=== PATIENT | male | born 1985 | race Caucasian/White ===

== ENCOUNTER 2019-08-23 17:31 | Emergency (ER) | payer OTHER, SELFPAY ==
[2019-08-23 17:39] VITALS: BP 130/80; PULSE 80; RESP 18; TEMP 38.4; O2SAT 98
--- NOTE | 2019-08-23 18:01 | ED.URI ---
HPI - URI/Sore Throat General Chief Complaint: Upper Respiratory Infection Stated Complaint: SORE THROAT/RUNNY NOSE/BODY ACHES Time Seen by Provider: 08/23/19 17:48 Source: patient and RN notes reviewed Mode of arrival: ambulatory Limitations: no limitations History of Present Illness HPI Narrative: Patient presents today with a 2-day history of sore throat, nonproductive cough, body aches, congestion and chills, and possible subjective fever. He has been taking Tylenol with relief. Denies history of asthma or COPD. He is a non-smoker. He did not receive a flu vaccine this season. MD elicited complaint: cough and sore throat Related Data Home Medications Medication Instructions Recorded Confirmed No Home Medications 08/23/19 08/23/19 Allergies Allergy/AdvReac Type Severity Reaction Status Date / Time No Known Allergies Allergy Verified 08/23/19 17:45 Review of Systems Review of Systems: Narrative: CONSTITUTIONAL: + Body aches, chills, subjective fever EYES: Denies visual changes, redness, or discharge. ENT: Denies rhinorrhea, or otalgia.+ Congestion, sore throat CARDIOVASCULAR: Denies chest pain, palpitations, or edema. RESPIRATORY: Denies dyspnea.+ Cough GASTROINTESTINAL: Denies abdominal pain, nausea, vomiting, or diarrhea. GENITOURINARY: Denies dysuria or hematuria. SKIN: Denies rash, itching, or wounds. MUSCULOSKELETAL: Denies back pain, joint pain, or myalgia. NEUROLOGIC: Denies headache, numbness, tingling, or weakness. PSYCH: Denies depression or anxiety. PMFSH Comments At time of signature, I have reviewed and agree with nursing past medical, surgical, social and family history unless otherwise noted. Please see nursing chart for further information. There is no relevant family history pertinent to the presenting complaint Exam Narrative: Exam Narrative: GENERAL: Mildly ill-appearing, well-nourished, and in no acute distress. HEAD: Normocephalic, atraumatic. EYES: EOMI. No redness or drainage. Conjunctivae normal. ENT: Mucous membranes pink and moist. Nares clear. No rhinorrhea. TMs normal bilaterally. Throat normal. Uvula midline. NECK: Normal AROM. Supple. No lymphadenopathy. CHEST: No respiratory distress. Clear to auscultation. HEART: Regular rate and rhythm. No murmur appreciated. Normal peripheral pulses. EXTREMITIES: Normal range of motion. No edema. SKIN: Warm, dry, no rash. NEURO: No focal deficits. Alert and oriented x3. Gait steady. PSYCH: Normal affect. No signs of depression or anxiety. Course Course Emergency Course: Patient has declined prescription for Tamiflu. Vital Signs Vital signs: Vital Signs Temperature 101.2 F H 08/23/19 17:39 Pulse Rate 80 08/23/19 17:39 Respiratory Rate 18 08/23/19 17:39 Blood Pressure 130/80 08/23/19 17:39 Pulse Oximetry 98 08/23/19 17:39 Temperature 101.2 F H 08/23/19 17:39 Pulse Rate 80 08/23/19 17:39 Respiratory Rate 18 08/23/19 17:39 Blood Pressure 130/80 08/23/19 17:39 Pulse Oximetry 98 08/23/19 17:39 Reviewed. Pt has been instructed to follow up with his PCP regarding his elevated blood pressure today. MDM - URI/Sore Throat Differential Diagnosis Differential diagnosis: Likely upper respiratory infection, otitis media, viral infection, influenza, pharyngitis and other (Strep throat) Lab Data Attestation: I reviewed the patient's lab results. Labs: Influenza A Screen Negative Reference Range: Negative Influenza B Screen Positive Reference Range: Negative Strep Screen Presumptive Negative *(Reference Range: Negative)* Critical Care Time Critical Care Time Critical Care Time: No Discharge Plan Discharge Clinical Impression: Influenza B Patient Disposition: Home, Self-Care Condition: Stable Instructions: Influenza (DC) Additional Instructions: Your influenza swab is positive for influenza B today. You will be
== END 2019-08-23 18:14 | disposition home or self-care (01) ==
PROVIDERS: Emergency Provider Nurse Practitioner
DX: J10.1 Influenza due to other identified influenza virus with other respiratory manifestations (principal)
CPT/HCPCS: 87081; 87804; 87880; 99213; G0463

== ENCOUNTER 2020-09-07 14:26 | Emergency (ER) | payer OTHER, SELFPAY ==
[2020-09-07 14:31] VITALS: BP 155/83; PULSE 74; RESP 20; TEMP 37.1; O2SAT 100
--- NOTE | 2020-09-07 14:38 | ED.UPPEXIN ---
HPI - Extremity Injury (Upper) General Chief Complaint: Extremity Injury, Upper Stated Complaint: thumb injury Time Seen by Provider: 09/07/20 14:38 Source: patient and RN notes reviewed History of Present Illness HPI narrative: Patient is a 35-year-old male who presents the urgent care with complaints of left thumb pain. Patient states that he was sledding yesterday and bent the left thumb backwards on accident. Patient denies of any use of [id number] medication for his pain. Patient is right-hand dominant. Denies of any other injuries. No other acute complaints. No acute distress noted. Patient aware of the plan of care. Some parts of this dictation were generated by voice recognition software and may contain typographical and/or grammatical inaccuracies. Related Data Home Medications Medication Instructions Recorded Confirmed No Home Medications 08/23/19 09/07/20 Allergies Allergy/AdvReac Type Severity Reaction Status Date / Time No Known Allergies Allergy Verified 09/07/20 14:31 Review of Systems Review of Systems: Narrative: CONSTITUTIONAL: Denies fever, chills, or sweats. EYES: Denies visual changes, redness, or discharge. ENT: Denies rhinorrhea, congestion, sore throat, or otalgia. CARDIOVASCULAR: Denies chest pain, palpitations, or edema. RESPIRATORY: Denies cough or dyspnea. GASTROINTESTINAL: Denies abdominal pain, nausea, vomiting, or diarrhea. GENITOURINARY: Denies dysuria or hematuria. SKIN: Denies rash or itching. MUSCULOSKELETAL: Reports of left thumb pain NEUROLOGIC: Denies headache, numbness, or weakness. All other systems reviewed are negative, except as documented in HPI. PMFSH Comments At the time of my signature, I reviewed and agree with the nursing past medical, surgical, social, and family history. There is no relevant family history pertinent to the patient complaint. Exam Narrative: Exam Narrative: GENERAL: This is a well-nourished, well-developed patient, in no apparent distress. HEAD: normocephalic, atraumatic. EYES: PERRL. Sclera clear/white. Vision is grossly intact. EARS: External ears normal NOSE: External nose normal with no obvious nasal discharge, nares without redness, no rhinorrhea. THROAT: Mucous membranes moist NECK: Neck supple SKIN: warm, intact with no suspicious lesions or rash, good texture and turgor. NEURO: awake, alert, and oriented to person, place and time. There were no obvious focal neurologic abnormalities. EXTREMITIES: Very minimal edema noted to the MCP of the left thumb without any obvious fracture or deformity. No notable ecchymosis. Positive strong left radial pulse with capillary refill less than 2 seconds to left upper extremity. Range of motion to left thumb within normal limits without any appearance of pain. No tenderness to the left thumb. Course Vital Signs Vital signs: Vital Signs Temperature 98.7 F 09/07/20 14:31 Pulse Rate 74 09/07/20 14:31 Respiratory Rate 20 09/07/20 14:31 Blood Pressure 155/83 H 09/07/20 14:31 Pulse Oximetry 100 09/07/20 14:31 Temperature 98.7 F 09/07/20 14:31 Pulse Rate 74 09/07/20 14:31 Respiratory Rate 20 09/07/20 14:31 Blood Pressure 155/83 H 09/07/20 14:31 Pulse Oximetry 100 09/07/20 14:31 Reviewed-patient is informed that they may have pre-hypertension or hypertension based on a blood pressure reading in the department. I recommend the patient call the primary care provider listed on their discharge instructions or a physician of their choice this week to arrange follow-up for further evaluation of possible pre-hypertension or hypertension. MDM - Extremity Injury (Upper) MDM Narrative Medical decision making narrative: Spoke to the patient regarding x-ray. Patient defers x-ray at this time and states that if the pain is persistent or he develops any increase in swelling?he will follow-up for an outpatient x-ray. Advised the patient to use Tylenol/ibuprofen as needed for p
== END 2020-09-07 14:44 | disposition home or self-care (01) ==
PROVIDERS: Emergency Provider Nurse Practitioner Family
DX: S63.602A Unspecified sprain of left thumb, initial encounter (principal); X50.9XXA Other and unspecified overexertion or strenuous movements or postures, initial encounter; Y93.23 Activity, snow (alpine) (downhill) skiing, snowboarding, sledding, tobogganing and snow tubing
CPT/HCPCS: 99213; G0463

== ENCOUNTER 2020-09-12 08:02 | Emergency (ER) | payer OTHER, SELFPAY ==
--- NOTE | ~2020-09-12 | XR_ITS ---
XR hand LT min 3V 09/12/2020 08:15 INDICATION: Left hand pain PROCEDURE: 3 views left hand COMPARISON: No prior studies for comparison. FINDINGS: Fracture, dislocation or subluxation is not identified. The soft tissues appear within norm al limits. No foreign bodies are identified. IMPRESSION: 1: NO ACUTE BONE OR JOINT ABNORMALITY IDENTIFIED. Reviewed, dictated and finalized at location A. TOR TECHNICIAN
[2020-09-12 08:10] VITALS: BP 132/68; PULSE 69; RESP 16; TEMP 37.5; O2SAT 100
--- NOTE | 2020-09-12 08:11 | ED.UPPEXIN ---
HPI - Extremity Injury (Upper) General Chief Complaint: Extremity Injury, Upper Stated Complaint: L THUMB PAIN Time Seen by Provider: 09/12/20 08:11 Source: patient and RN notes reviewed Mode of arrival: ambulatory Limitations: no limitations History of Present Illness HPI narrative: 35-year-old male re-presents with concern for left thumb injury, pain, swelling. Reports 6 days ago he was sledding and injured the left thumb. Was seen in this clinic on September 07. Patient reports pain persists, swelling persists. Reports pain with range of motion. Denies decreased sensation, strength, bruising. complaint: injury to: left and finger Related Data Home Medications Medication Instructions Recorded Confirmed No Home Medications 08/23/19 09/07/20 Allergies Allergy/AdvReac Type Severity Reaction Status Date / Time No Known Allergies Allergy Verified 09/07/20 14:31 Review of Systems Review of Systems: Narrative: CONSTITUTIONAL: Denies malaise, chills, sweats, or fever. SKIN: Denies laceration, abrasions MUSCULOSKELETAL: Reports left thumb pain NEUROLOGIC: Denies numbness, weakness All systems reviewed & are unremarkable except as noted in HPI and below PMFSH Comments At time of signature, agree with nursing past medical, surgical, social and family history. There is no relevant family history pertinent to the presenting complaint Exam Narrative: Exam Narrative: GENERAL: Well-appearing, well-nourished, and in no acute distress. HEAD: Normocephalic EYES: PERRLA, conjunctivae clear NECK: Supple. CHEST: Speaks in full sentences. No respiratory distress. HEART: Regular rate and rhythm. Normal and equal peripheral pulses. EXTREMITIES: Left first digit has normal sensation. 4/5 strength with digit flexion, extension. Range of motion normal. No clubbing, cyanosis. Moderate edema noted to the MCP joint of the first digit with mild tenderness in the ulnar side of the digit. Mild laxity at the MCP joint. Skin intact. Normal digital cascade with flexion of fingers, median, ulnar and radial nerve intact. Normal sensation of each side of finger. Can perform 'okay' sign, 'cross over finger test of index and middle fingers' and 'thumbs up' sign. No scissoring. Normal thumb opposition. Good capillary refill and radial pulse. Distal capillary refill less than 3 seconds. SKIN: Warn, dry, intact, pink. No rash NEURO: Alert and oriented x3. PSYCH: Normal mood and affect Course Course Emergency Course: Patient is aware of diagnosis, understands and agrees to treatment plan. Anticipatory guidance given. Patient agrees to follow-up as directed and is aware of reasons to seek care at the emergency department. Portions of this record may have been created with voice recognition software Vital Signs Vital signs: Vital Signs Temperature 99.5 F 09/12/20 08:10 Pulse Rate 69 09/12/20 08:10 Respiratory Rate 16 09/12/20 08:10 Blood Pressure 132/68 09/12/20 08:10 Pulse Oximetry 100 09/12/20 08:10 Temperature 99.5 F 09/12/20 08:10 Pulse Rate 69 09/12/20 08:10 Respiratory Rate 16 09/12/20 08:10 Blood Pressure 132/68 09/12/20 08:10 Pulse Oximetry 100 09/12/20 08:10 Reviewed. MDM - Extremity Injury (Upper) MDM Narrative Medical decision making narrative: Patients injury and pain is consistent with musculoskeletal etiology. No signs of neurological or vascular compromise on exam. Compartments and tissues are soft without signs of compartment syndrome. Pain is felt appropriate for further evaluation on an outpatient basis. Imaging Data Radiologist's impression: XR hand LT min 3V 09/12/2020 08:15 INDICATION: Left hand pain PROCEDURE: 3 views left hand COMPARISON: No prior studies for comparison. FINDINGS: Fracture, dislocation or subluxation is not identified. The soft tissues appear within normal limits. No foreign bodies are identified. IMPRESSION: 1: NO ACUTE BONE OR JOINT ABNORMALITY NGUYỄN
== END 2020-09-12 08:47 | disposition home or self-care (01) ==
PROVIDERS: Emergency Provider Nurse Practitioner
DX: S69.92XD Unspecified injury of left wrist, hand and finger(s), subsequent encounter (principal); X58.XXXD Exposure to other specified factors, subsequent encounter; Y93.23 Activity, snow (alpine) (downhill) skiing, snowboarding, sledding, tobogganing and snow tubing
CPT/HCPCS: 73130; 99213; G0463

== ENCOUNTER 2022-10-12 19:18 | Emergency (ER) | payer OTHER, SELFPAY ==
[2022-10-12 19:22] VITALS: BP 130/85; PULSE 79; RESP 16; TEMP 36.4; O2SAT 100
--- NOTE | 2022-10-12 19:36 | ED.URI ---
HPI - URI/Sore Throat General Chief Complaint: Upper Respiratory Infection Stated Complaint: cough,headache,sore throat,congestion Time Seen by Provider: 10/12/22 19:36 Source: patient and RN notes reviewed Mode of arrival: ambulatory Limitations: no limitations History of Present Illness HPI Narrative: 37 y/o male presented for c/o sore throat, nasal congestion and drainage, headache and cough for about 3 days. Symptoms have varied over the past few days. Not taking anything for symptoms. Son was sick last week with strep. MD elicited complaint: cough Related Data Home Medications Medication Instructions Recorded Confirmed No Home Medications 08/23/19 09/07/20 Allergies Allergy/AdvReac Type Severity Reaction Status Date / Time No Known Allergies Allergy Verified 09/07/20 14:31 Review of Systems Review of Systems: CONSTITUTIONAL: Denies malaise, chills, sweats, fever EYES: Denies visual changes, redness, or discharge ENT: Reports rhinorrhea, congestion, sinus pain, sore throat CARDIOVASCULAR: Denies chest pain, palpitations, edema RESPIRATORY: Reports cough, post nasal drainage. Denies dyspnea GASTROINTESTINAL: Denies abdominal pain, nausea, vomiting, diarrhea SKIN: Denies rash or itching MUSCULOSKELETAL: Denies myalgia [facility] Past Medical History Medical History (Updated 10/12/22 @ 19:42 by Francheska Christensen, CÉSAR) No pertinent past medical history Exam Narrative: GENERAL: well-appearing EYES: PERRLA, conjunctivae clear ENT: Mucous membranes moist. TMs pearly al with dull light reflex bilaterally; no tragal tenderness. Oropharynx not erythematous no lesions or exudate, no drooling, no hoarseness, no trismus, uvula midline. CHEST: Clear to auscultation, breath sounds equal. No wheezing, rhonchi, rales, or stridor. No respiratory distress, speaks in full sentences. HEART: Regular rate and rhythm. No murmur heard. SKIN: Warm, dry, no rash. NEURO: Alert and oriented x3. PSYCH: Normal mood and affect Course Course Emergency Course: Patient is aware of diagnosis, understands and agrees to treatment plan. Anticipatory guidance given. Patient agrees to follow-up as directed and is aware of reasons to seek care at the emergency department. Portions of this record may have been created with voice recognition software Level of Care: Express Care Visit Vital Signs Vital signs: Vital Signs Temperature 97.6 F 10/12/22 19:22 Pulse Rate 79 10/12/22 19:22 Respiratory Rate 16 10/12/22 19:22 Blood Pressure 130/85 10/12/22 19:22 Pulse Oximetry 100 10/12/22 19:22 Temperature 97.6 F 10/12/22 19:22 Pulse Rate 79 10/12/22 19:22 Respiratory Rate 16 10/12/22 19:22 Blood Pressure 130/85 10/12/22 19:22 Pulse Oximetry 100 10/12/22 19:22 reviewed MDM - URI/Sore Throat MDM Narrative Medical decision making narrative: Neg strep result reviewed with pt. Advised supportive measures and signs/symptoms to go to the ER. Pt is appropriate for outpt treatment and f/u. Differential Diagnosis Differential diagnosis: Likely upper respiratory infection, sinusitis, viral infection and pharyngitis Lab Data Labs: Strep Screen Presumptive Negative *(Reference Range: Negative)* Discharge Plan Discharge Clinical Impression: Upper respiratory infection Patient Disposition: Home, Self-Care Condition: Stable Instructions: Upper Respiratory Infection (ED) Additional Instructions: Rapid strep swab was negative today You will be notified in a few days if the culture comes back positive for strep, and appropriate antibiotics will be called in at that time. if symptoms are due to a viral illness, it is not treated with antibiotics. Viral symptoms can be present for up to 10-14 days. Recommend Flonase spray and Zyrtec for sinus congestion Cough syrup may cause drowsiness; avoid driving or take it at night time. Louann
== END 2022-10-12 19:44 | disposition home or self-care (01) ==
PROVIDERS: Emergency Provider Nurse Practitioner Family
DX: J06.9 Acute upper respiratory infection, unspecified (principal)
CPT/HCPCS: 87081; 87880; 99213; G0463

== ENCOUNTER 2024-02-29 09:52 | Emergency (ER) | payer OTHER, SELFPAY ==
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
[2024-02-29 10:04] VITALS: BP 123/73; PULSE 67; RESP 16; TEMP 36.6; O2SAT 100
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
== END 2024-02-29 11:10 | disposition home or self-care (01) ==
PROVIDERS: Emergency Provider Nurse Practitioner
DX: S60.051A Contusion of right little finger without damage to nail, initial encounter (principal); V19.9XXA Pedal cyclist (driver) (passenger) injured in unspecified traffic accident, initial encounter
CPT/HCPCS: 73140; 99213; G0463

== ENCOUNTER 2024-04-02 18:23 | Emergency (ER) | payer OTHER, SELFPAY ==
--- NOTE | ~2024-04-02 | XR_ITS ---
XR chest 2V DATE: 04/02/2024 19:23 INDICATION: Cough, fever TECHNIQUE: 2 views COMPARISON: None FINDINGS: There is mild patchy infiltrate in the base of the right lung, right lower lobe. The lungs otherwise appear clear. No pleural effusion or pulmonary vascular congestion or pneumothorax. Normal heart size. No hilar or mediastinal enlargement. Included skeletal structures are unremarkable. IMPRESSION: Mild patchy right lower lobe infiltrate, likely due to pneumonia given the history of cou gh and fever Reviewed, dictated and finalized at location A. IMPRESSION: Mild patchy right lower lobe infiltrate, likely due to pneumonia gi viviana the history of cough and fever
--- NOTE | 2024-04-02 18:25 | ED.URI ---
HPI - URI/Sore Throat General Chief Complaint: Upper Respiratory Infection Stated Complaint: BODY ACHES/COUGH/FEVER Time Seen by Provider: 04/02/24 18:52 Source: patient, RN notes reviewed and old records reviewed Mode of arrival: ambulatory Limitations: no limitations History of Present Illness HPI Narrative: 38-year-old male presents to the [facility] with complaints of body aches, cough pain fevers. Symptoms started several days ago states that he thought it was getting better yesterday but woke up with fever in feeling worse today. Related Data Allergies Allergy/AdvReac Type Severity Reaction Status Date / Time No Known Allergies Allergy Verified 04/02/24 18:43 Review of Systems Review of Systems: All systems reviewed & are unremarkable except as noted in HPI and below Constitutional: Constitutional: Reports as per HPI, Reports body ache(s) and Reports chills Eyes: Eyes: Reports no additional eye complaints ENT: Reports as per HPI Cardiovascular: Cardiovascular: Reports no additional cardiovascular complaints, Denies chest pain and Denies dyspnea Respiratory: Respiratory: Reports as per HPI, Denies chest congestion, Reports cough and Denies dyspnea Gastrointestinal: Gastrointestinal: Reports no additional gastrointestinal complaints, Denies abdominal pain, Denies nausea and Denies vomiting Musculoskeletal: Musculoskeletal: Reports no additional musculoskeletal complaints Integumentary/Breasts: Skin/Breast: Reports system reviewed and no additional complaints, except as docu Neurologic: Reports system reviewed and no additional complaints, except as documented Psychiatric: Psychiatric: Reports no additional psychiatric complaints Allergic/Immunologic: Allergic/Immunologic: Reports no additional allergic/immunologic complaints [facility] Past Medical History Medical History No pertinent past medical history Comments At the time of my signature, I reviewed and agree with the nursing past medical, surgical, social, and family history. There is no relevant family history pertinent to the patient complaint. Exam Const: General: cooperative, healthy appearing, comfortable, no acute distress, well developed, alert and well nourished Nutritional Appearance: well nourished Orientation/consciousness: patient oriented x3 Limitations: no limitations HENMT: Head: normal to inspection Ears: hearing grossly normal bilaterally, external ears normal, TM's normal bilaterally, EAC's normal, mastoids normal and no periauricular adenopathy Face/Nose/Sinus: Normal external nose present, Normal nares present, Normal nasal mucous membranes and turbinates present, normal facial exam and face symmetric Face and sinus: normal facial exam and face symmetric Mouth: Yes Normal oral and palatal mucosa present, Yes lip normal and Yes tongue normal Throat: posterior oropharynx normal and uvula midline Eyes: General: appearance normal, both eyes and all related structures Alignment and Position: alignment normal Periorbital: periorbital findings normal Pupils: Equal, round and reactive pupils present EOM: EOMs intact bilaterally Neck: Neck: normal visual inspection, full ROM, no lymphadenopathy and no meningeal signs Chest: Chest palpation & inspection: normal inspection of the chest Resp: Effort & Inspection: normal respiratory effort and able to speak in complete sentences Auscultation: no crackles, no rales, rhonchi right lower and no wheezes Cardio: Rate: regular rate Rhythm: regular rhythm Skin: General skin exam: normal color and no rashes or lesions noted Lesions: no lesions Rashes: no rashes Trauma: no lacerations or abrasions Wounds: no wounds Neuro: General: patient oriented x3, gait normal, tone normal, moves all extremities and no meningeal signs Cranial nerves: Yes Equal, round and reactive pupils present Cognition (Neuro): normal cognition Speech: normal speech [place]
[2024-04-02 18:49] VITALS: BP 118/81; PULSE 100; RESP 16; TEMP 37.9; O2SAT 100
[2024-04-02 19:16] LABS: EDINFLUASCREEN Negative (Negative); EDINFLUBSCREEN Negative (Negative)
== END 2024-04-02 19:40 | disposition home or self-care (01) ==
PROVIDERS: Emergency Provider Nurse Practitioner
DX: J18.1 Lobar pneumonia, unspecified organism (principal); Z20.822 Contact with and (suspected) exposure to COVID-19
CPT/HCPCS: 71046; 87426; 87804; 99213; G0463

== ENCOUNTER 2025-02-11 09:58 | Emergency (ER) | payer OTHER, SELFPAY ==
[2025-02-11 10:07] VITALS: BP 127/64; PULSE 72; RESP 16; TEMP 36.6; O2SAT 100
--- NOTE | 2025-02-11 10:38 | ED_ITS ---
HPI - Ear Problem General Chief complaint: Ear Stated complaint: Ear Pain Time Seen by Provider: 02/11/25 10:30 Source: patient and RN notes reviewed Mode of arrival: ambulatory Limitations: no limitations History of Present Illness HPI Narrative: Patient presents today complaining of mild right ear pain since yesterday. Denies decreased hearing or drainage. He has been swimming frequently. Currently rates his pain 3/10 and has tried no [id number]-[id number] interventions prior to arrival. He also reports a small bump to his scrotum x6 weeks. States has not changed in the past 6 weeks. Denies tenderness or drainage. States his child has some molluscum contagiosum and he wanted to make sure it was not that prior to going on vacation. Related Data Allergies Allergy/AdvReac Type Severity Reaction Status Date / Time No Known Allergies Allergy Verified 04/02/24 18:43 [facility] Past Medical History Medical History No pertinent past medical history Comments At time of signature, I have reviewed and agree with nursing past medical, surgical, social and family history unless otherwise noted. Please see nursing chart for further information. There is no relevant family history pertinent to the presenting complaint Exam Narrative: GENERAL: Well-appearing, well-nourished, and in no acute distress. HEAD: Normocephalic, atraumatic. EYES: EOMI. No redness or drainage. Conjunctivae normal. ENT: Mucous membranes pink and moist. Nares clear. Left ear normal. Right ear: TM normal. Canal is mildly erythematous without edema or drainage. Mild tragal tenderness. NECK: Normal AROM. CHEST: No respiratory distress. 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 Patient has a small skin colored pustule to the mid scrotum measuring approximately 2 mm without erythema or drainage. Nontender to palpation. EXTREMITIES: Normal range of motion. No edema. SKIN: Warm, dry, no rash. Capillary refill normal. Normal skin turgor. NEURO: No focal deficits. Alert and oriented x3. Gait steady. PSYCH: Normal affect. No signs of depression or anxiety. Course Course Level of Care: Express Care Visit Vital Signs Vital signs: Vital Signs Temperature 97.8 F 02/11/25 10:07 Pulse Rate 72 02/11/25 10:07 Respiratory Rate 16 02/11/25 10:07 Blood Pressure 127/64 02/11/25 10:07 Pulse Oximetry 100 02/11/25 10:07 Temperature 97.8 F 02/11/25 10:07 Pulse Rate 72 02/11/25 10:07 Respiratory Rate 16 02/11/25 10:07 Blood Pressure 127/64 02/11/25 10:07 Pulse Oximetry 100 02/11/25 10:07 Medical Decision Making MDM Narrative Medical decision making narrative: 39-year-old male patient presents with right ear pain since yesterday after frequently swimming. Also would like an area of his scrotum evaluated. Exam shows some mild erythema in the canal consistent with early otitis externa for which he will be treated with some Ciprodex. Evaluation of his scrotum shows a tiny pustule. Recommend some warm compresses as the area does not seem acutely infected with PCP follow-up if symptoms persist or worsen. Vital signs stable. Anticipatory guidance given. Patient agrees with plan. Differential Diagnosis Differential Diagnosis: Otitis media, otitis externa, ruptured TM, serous otitis, cerumen impaction. Molluscum contagiosum, abscess, cellulitis, ingrown hair Vital Signs Vital Signs: Vital Signs Temperature 97.8 F 02/11/25 10:07 Pulse Rate 72 02/11/25 10:07 Respiratory Rate 16 02/11/25 10:07 Blood Pressure 127/64 02/11/25 10:07 Pulse Oximetry 100 02/11/25 10:07 Temperature 97.8 F 02/11/25 10:07 Pulse Rate 72 02/11/25 10:07 Respiratory Rate 16 02/11/25 10:07 Blood Pressure 127/64 02/11/25 10:07 Pulse Oximetry 100 02/11/25 10:07 Critical Care Time Critical Care Time Critical Care Time: No Discharge Plan Discharge Clinical Impression: Otitis externa of right ear, Pustule Patient Disposition: Home Condition: Stable Instructions: Swimmer's Ear (ED) Additional Instructions: Please use the ear drops as directed. Keep your ear as dry as possible, and do not put anything in the ear canal that will irritated such as ear buds, ear plugs, or Q-tips. Do not submerge the head in water such as pools, hot tubs for the next approximately 5 days. Take Tylenol or ibuprofen if needed for pain. Apply warm compress to the pustule on your scrotum to help facilitate any drainage. If the area worsens to include pain, swelling, redness, please follow-up with your PCP. Your blood pressure was elevated above 120/80 today at Urgent Care. This puts you above the threshold for follow up. Please schedule a followup visit with your personal physician as soon as possible, for further evaluation and treatment. Even blood pressure exceeding 120/80 may indicate pre-hypertension. Patient Language: Citizen Of [place] Prescriptions: New ciprofloxacin-dexamethasone 0.3-0.1 % drops,suspension 4 drp RIGHT EAR Q12H 5 Days Qty: 7.5 0RF Follow-up/Referrals: PHYSICIAN,PROFESSOR OF ARCHITECTURE [Primary Care Provider] - Time of Disposition: 10:45
== END 2025-02-11 10:48 | disposition home or self-care (01) ==
PROVIDERS: Emergency Provider Nurse Practitioner
DX: H60.91 Unspecified otitis externa, right ear (principal); L08.9 Local infection of the skin and subcutaneous tissue, unspecified
CPT/HCPCS: 99213; G0463

== ENCOUNTER 2025-04-20 16:10 | Emergency (ER) | payer OTHER, SELFPAY ==
--- NOTE | 2025-04-20 16:23 | ED_ITS ---
HPI - Wound/Laceration General Chief Complaint: Skin/Abscess/Foreign Body Stated Complaint: PUNCTURE WOUND L WRIST Time Seen by Provider: 04/20/25 16:23 Source: patient Mode of arrival: ambulatory Limitations: no limitations History of Present Illness HPI narrative: 40-year-old male presented for complaint of bruising to the forearm for about 1 week. Bruising started after he punctured the forearm with a picture wire 1 week ago. He denies any pain or swelling, numbness, tingling or weakness of the hand. Says he talked to the school nurse today who advised evaluation due to the bruising. Related Data Allergies Allergy/AdvReac Type Severity Reaction Status Date / Time No Known Allergies Allergy Verified 04/20/25 16:37 Review of Systems 2 Review of Systems: CONSTITUTIONAL: Denies body aches, fever, chills, or sweats. CARDIOVASCULAR: Denies chest pain, palpitations, or edema. RESPIRATORY: Denies cough or dyspnea. GASTROINTESTINAL: Denies abdominal pain, nausea, vomiting, or diarrhea. SKIN: reports bruising MUSCULOSKELETAL: Denies back pain, joint pain, or myalgia. NEUROLOGIC: Denies numbness, tingling, or weakness. [facility] Past Medical History Medical History No pertinent past medical history Comments At time of signature, I have reviewed and agree with nursing past medical, surgical, social and family history unless otherwise noted. Please see nursing chart for further information. There is no relevant family history pertinent to the presenting complaint Exam 2 Narrative: GENERAL: Well-appearing ENT: Mucous membranes moist. Oropharynx without edema, erythema or lesions. CHEST: Clear to auscultation. HEART: Regular rate and rhythm. SKIN: Warm, dry. Left distal forearm volar surface with bruising extending from wrist to mid forearm, bruising also noted to distal ulna. Nontender. Bruising is brown in color. CMS intact. Puncture wound to ulnar aspect of distal forearm has no surrounding erythema, swelling or bruising. NEURO: Alert and oriented x3. Extrem: Elbow/forearm/wrist images: 1. area of bruising 2. bruising Course Course Emergency Course: Patient is aware of diagnosis, understands and agrees to treatment plan. Anticipatory guidance given. Patient agrees to follow-up as directed and is aware of reasons to seek care at the emergency department. Portions of this record may have been created with voice recognition software Level of Care: Express Care Visit Vital Signs Vital signs: Vital Signs Temperature 97.8 F 04/20/25 16:25 Pulse Rate 81 04/20/25 16:25 Respiratory Rate 16 04/20/25 16:25 Blood Pressure 119/65 04/20/25 16:25 Pulse Oximetry 100 04/20/25 16:25 Temperature 97.8 F 04/20/25 16:25 Pulse Rate 81 04/20/25 16:25 Respiratory Rate 16 04/20/25 16:25 Blood Pressure 119/65 04/20/25 16:25 Pulse Oximetry 100 04/20/25 16:25 Reviewed MDM - Wound/Laceration MDM Narrative Medical decision making narrative: Discussed physical exam findings c/w contusion of left distal arm, appears healing. Tetanus updated. Advised supportive measures and signs/symptoms to go to the ER. Pt is appropriate for outpt treatment and f/u. Differential Diagnosis Differential diagnosis: Likely abrasion, avulsion of skin and other (puncture wound, contusion, cellulitis) Discharge Plan Discharge Clinical Impression: Contusion Patient Disposition: Home Condition: Stable Instructions: Antibiotic Form, Contusion in Adults (ED) Additional Instructions: Continue to monitor the bruising If symptoms worsen please follow up with your primary care provider Tylenol as needed for pain Follow up with your primary care provider as needed in 1 week Go to the ER for worsening symptoms or concerns Patient Language: French Prescriptions: No Action ciprofloxacin-dexamethasone 0.3-0.1 % drops,suspension 4 drp RIGHT EAR Q12H 5 Days Qty: 7.5 0RF Follow-up/Referrals: Fady,Tresa [Other]
[2025-04-20 16:25] VITALS: BP 119/65; PULSE 81; RESP 16; TEMP 36.6; O2SAT 100
[2025-04-20] MEDS: TETANUS,DIPHTHERIA,AC PERTUSSIS ADULT (0.5 ML) BOOSTRIX IM (16:51)
== END 2025-04-20 17:00 | disposition home or self-care (01) ==
PROVIDERS: Emergency Provider Nurse Practitioner Family
DX: S50.12XA Contusion of left forearm, initial encounter (principal); W22.8XXA Striking against or struck by other objects, initial encounter; Z23 Encounter for immunization
CPT/HCPCS: 90471; 90715; 99212; G0463